=== PATIENT | female | born 1970 | race Caucasian/White ===

== ENCOUNTER 2022-01-15 09:02 | Outpatient (CLI) | payer BC, SELFPAY ==
--- NOTE | 2022-01-15 09:15 | CRLHL7_ITS ---
For Patients: As a result of the Century Cures Act, medical imaging exams and procedure reports are released immediately into your electronic medical record. You may view this report before your referring provider. If you have questions, please contact your health care provider. BILATERAL DIGITAL SCREENING MAMMOGRAM WITH TOMOSYNTHESIS AND COMPUTER-AIDED DETECTION CLINICAL HISTORY: Routine screening exam. COMPARISON: None. TECHNIQUE: Digital mammogram in CC and MLO projections including computer-aided detection (CAD). Tomosynthesis utilized. BREAST COMPOSITION: There are areas of scattered fibroglandular density. FINDINGS: RIGHT Breast: No suspicious findings. LEFT Breast: Focal asymmetric density upper outer quadrant 5 cm from the nipple. IMPRESSION: LEFT breast asymmetry/mass. RECOMMENDATIONS: Additional mammographic views of the LEFT breast including 3D spot compression CC/MLO. LEFT breast ultrasound may also be required. The [facility] will contact the patient for follow-up. BI-RADS Category 0: Incomplete: Need Additional Imaging Evaluation and/or Prior Mammograms for Comparison A lay language report of this examination will be provided to the patient. Dictated by Dong Ruiz MD @ 02/02/2022 9:02:09 AM jj/Dictated by: Dong Ruiz MD @ 02/02/2022 9:02:00 AM (Electronically Signed)
== END 2022-01-15 09:03 | disposition home or self-care (01) ==
LOC: MAMMO 09:02
PROVIDERS: PCP Nurse Practitioner Family; Visit Provider Nurse Practitioner Family
DX: Z12.31 Encounter for screening mammogram for malignant neoplasm of breast (principal); N63.20 Unspecified lump in the left breast, unspecified quadrant
CPT/HCPCS: 77063; 77067

== ENCOUNTER 2022-04-16 12:52 | Outpatient (CLI) | payer BC, SELFPAY ==
[2022-04-16 15:19] LABS: Cholesterol* 229 mg/dL (90-199); Triglycerides* 175 mg/dL (40-149)
[2022-04-16 15:20] LABS: HDL Cholesterol* 65 mg/dL (>=50); LDL Cholesterol Calculated 129 mg/dL (<100)
== END 2022-04-16 12:53 | disposition home or self-care (01) ==
PROVIDERS: PCP Nurse Practitioner Family; Visit Provider Nurse Practitioner Family
DX: Z13.6 Encounter for screening for cardiovascular disorders (principal)
CPT/HCPCS: 36415; 80061

== ENCOUNTER 2022-04-26 08:07 | Outpatient (CLI) | payer BC, SELFPAY ==
--- NOTE | 2022-04-26 09:52 | W.ANESCHARGE ---
Anesthesia Charges Start Date/Time Anesthesia Start Date: 04/26/22 Anesthesia Start Time: 09:15 Stop Date/Time Anesthesia Stop Date: 04/26/22 Anesthesia Stop Time: 09:55 Summary Emergency: No
== END 2022-04-26 08:08 | disposition home or self-care (01) ==
LOC: OP CLINIC 08:07
PROVIDERS: PCP Nurse Practitioner Family; Visit Provider Surgery
DX: Z86.010 Personal history of colon polyps (principal); K63.5 Polyp of colon
CPT/HCPCS: 00811; 45385; 88305

== ENCOUNTER 2023-02-22 15:34 | Outpatient (CLI) | payer BC, SELFPAY ==
--- NOTE | 2023-02-22 15:40 | CRLHL7_ITS ---
For Patients: As a result of the Cures Act, medical imaging exams and procedure reports are released immediately into your electronic medical record. You may view this report before your referring provider. If you have questions, please contact your health care provider. BILATERAL SCREENING MAMMOGRAM WITH COMPUTER-AIDED DETECTION AND TOMOSYNTHESIS TECHNIQUE: CC and MLO views were obtained. These mammographic images have been obtained using full-field digital technique. These mammographic images were interpreted with the benefit of computer-aided detection. Breast Tomosynthesis was used in this interpretation. COMPARISON FILM: 01/15/22, 10/03/20, 03/22/19. FINDINGS: There are scattered areas of fibroglandular density IMPRESSION: There is no radiographic evidence for malignancy. ASSESSMENT: BI-RADS Category 1: Negative RECOMMENDATION: Routine screening mammogram in 1 year. A lay language report of this examination will be provided to the patient. Dong Ruiz M.D. Diagnostic Radiologist [email or web address] Transcribed: 3:12 p.fatou pearson/Dictated by: Dong Ruiz MD @ 02/23/2023 12:15:00 PM (Electronically Signed)
== END 2023-02-22 15:35 | disposition home or self-care (01) ==
LOC: MAMMO 15:35
PROVIDERS: PCP Nurse Practitioner Family; Visit Provider Nurse Practitioner Family
DX: Z12.31 Encounter for screening mammogram for malignant neoplasm of breast (principal)
CPT/HCPCS: 77063; 77067

== ENCOUNTER 2023-05-06 09:23 | Outpatient (CLI) | payer BC, SELFPAY | END 2023-05-06 09:24 | disposition home or self-care (01) | PROVIDERS: PCP Nurse Practitioner Family; Visit Provider Nurse Practitioner Family | DX: E78.5 Hyperlipidemia, unspecified (principal); Z13.1 Encounter for screening for diabetes mellitus; Z13.0 Encounter for screening for diseases of the blood and blood-forming organs and certain disorders involving the immune mechanism; Z13.6 Encounter for screening for cardiovascular disorders | CPT/HCPCS: 80048; 80061; 85025 ==

== ENCOUNTER 2024-03-26 13:06 | Outpatient (CLI) | payer BC, SELFPAY ==
--- NOTE | 2024-03-26 13:20 | CRLHL7_ITS ---
For Patients: As a result of the Century Cures Act, medical imaging exams and procedure reports are released immediately into your electronic medical record. You may view this report before your referring provider. If you have questions, please contact your health care provider. BILATERAL SCREENING MAMMOGRAM WITH COMPUTER-AIDED DETECTION AND TOMOSYNTHESIS TECHNIQUE: CC and MLO views were obtained. These mammographic images have been obtained using full-field digital technique. These mammographic images were interpreted with the benefit of computer-aided detection. Breast Tomosynthesis was used in this interpretation. COMPARISON FILM: 02/22/23, 01/15/22, 10/03/20. FINDINGS: There are scattered areas of fibroglandular density. IMPRESSION: There is no radiographic evidence for malignancy. ASSESSMENT: BI-RADS Category 1: Negative RECOMMENDATION: Routine screening mammogram in 1 year. A lay language report of this examination will be provided to the patient. Dong Ruiz M.D. Diagnostic Radiologist [email or web address] SP/Dictated by: Dong Ruiz MD @ 03/30/2024 10:35:00 AM (Electronically Signed)
== END 2024-03-26 13:07 | disposition home or self-care (01) ==
LOC: MAMMO 13:07
PROVIDERS: PCP Nurse Practitioner Family; Visit Provider Nurse Practitioner Family
DX: Z12.31 Encounter for screening mammogram for malignant neoplasm of breast (principal)
CPT/HCPCS: 77063; 77067

== ENCOUNTER 2024-06-08 10:57 | Outpatient (CLI) | payer BC, SELFPAY | END 2024-06-08 10:58 | disposition home or self-care (01) | PROVIDERS: PCP Nurse Practitioner Family; Visit Provider Nurse Practitioner Family | DX: E78.5 Hyperlipidemia, unspecified (principal); N39.0 Urinary tract infection, site not specified; Z13.0 Encounter for screening for diseases of the blood and blood-forming organs and certain disorders involving the immune mechanism | CPT/HCPCS: 80053; 80061; 81001; 85025; 87086 ==

== ENCOUNTER 2025-03-29 07:54 | Outpatient (CLI) | payer BC, SELFPAY ==
--- NOTE | 2025-03-29 08:15 | CRLHL7_ITS ---
For Patients: As a result of the Century Cures Act, medical imaging exams and procedure reports are released immediately into your electronic medical record. You may view this report before your referring provider. If you have questions, please contact your health care provider. INDICATION: BILATERAL SCREENING MAMMOGRAM, ASYMPTOMATIC 54 Y/O FEMALE COMPARISON: 03/26/2024, 02/22/2023, 01/15/2022 TECHNIQUE: Digital mammogram in CC and MLO projections including computer-aided detection (CAD) and tomosynthesis. BREAST COMPOSITION: There are scattered areas of fibroglandular density. FINDINGS: No suspicious findings. ASSESSMENT: BI-RADS 1 Negative RECOMMENDATION: Annual screening mammogram. A lay language report of this examination will be provided to the patient. Dictated by: Dong Ruiz MD @ 03/29/2025 10:12:34 (Electronically Signed)
== END 2025-03-29 07:55 | disposition home or self-care (01) ==
LOC: MAMMO 07:55
PROVIDERS: PCP Nurse Practitioner Family; Visit Provider Nurse Practitioner Family
DX: Z12.31 Encounter for screening mammogram for malignant neoplasm of breast (principal)
CPT/HCPCS: 77063; 77067

== ENCOUNTER 2025-04-30 08:02 | Outpatient (CLI) | payer BC, SELFPAY ==
--- NOTE | 2025-04-30 09:21 | P.ANES_ITS ---
Anesthesia Charges Start Date/Time Anesthesia Start Date: 04/30/25 Anesthesia Start Time: 08:46 Stop Date/Time Anesthesia Stop Date: 04/30/25 Anesthesia Stop Time: 09:22 Coding CPT Codes CPT Codes: ANDERS LWR INTST NDSC NOS - [id number] ([id number]) P2 - PATIENT W/MILD SYST DISEASE, QK - HVAC COMMERCIAL SALESPERSON 2-4 CNCRNT ANES PROC, QX - SALES PROMOTION OFFICER SVC W/ MD MED DIRECTION
--- NOTE | 2025-04-30 09:21 | W.ANESCHARGE ---
Anesthesia Charges Start Date/Time Anesthesia Start Date: 04/30/25 Anesthesia Start Time: 08:46 Stop Date/Time Anesthesia Stop Date: 04/30/25 Anesthesia Stop Time: 09:22 Coding CPT Codes CPT Codes: ANDERS LWR INTST NDSC NOS - [id number] ([id number]) P2 - PATIENT W/MILD SYST DISEASE, QK - CAR DROPPER 2-4 CNCRNT ANES PROC, QX - DREDGE OPERATOR SVC W/ MD MED DIRECTION
--- NOTE | 2025-04-30 10:50 | P.ANES_ITS ---
Anesthesia Charges Start Date/Time Anesthesia Start Date: 04/30/25 Anesthesia Start Time: 08:46 Stop Date/Time Anesthesia Stop Date: 04/30/25 Anesthesia Stop Time: 09:22 Coding CPT Codes CPT Codes: ANDERS SCHMITZ INTST NDSC NOS - [id number] ([id number]) P2 - PATIENT W/MILD SYST DISEASE, QX - INK TECHNICIAN SVC W/ MD MED DIRECTION, QK - ACCOUNTS RECEIVABLE COORDINATOR 2-4 CNCRNT ANEChaim PROC
--- NOTE | 2025-04-30 10:50 | W.ANESCHARGE ---
Anesthesia Charges Start Date/Time Anesthesia Start Date: 04/30/25 Anesthesia Start Time: 08:46 Stop Date/Time Anesthesia Stop Date: 04/30/25 Anesthesia Stop Time: 09:22 Coding CPT Codes CPT Codes: ANDERS SCHMITZ INTST NDSC NOS - [id number] ([id number]) P2 - PATIENT W/MILD SYST DISEASE, QX - JUVENILE JUSTICE OFFICER SVC W/ MD MED DIRECTION, QK - SENIOR SCIENTIST 2-4 CNCRNT ANEChaim PROC
== END 2025-04-30 08:03 | disposition home or self-care (01) ==
LOC: OP CLINIC 08:02
PROVIDERS: PCP Nurse Practitioner Family; Visit Provider Internal Medicine
DX: Z12.11 Encounter for screening for malignant neoplasm of colon (principal); D12.0 Benign neoplasm of cecum; D12.4 Benign neoplasm of descending colon; D12.5 Benign neoplasm of sigmoid colon; D12.8 Benign neoplasm of rectum; D49.0 Neoplasm of unspecified behavior of digestive system; Z86.0100 Personal history of colon polyps, unspecified
CPT/HCPCS: 00811; 00812; 45380; 45385; 88305; J2704

== ENCOUNTER 2025-06-18 08:20 | Outpatient (CLI) | payer BC, SELFPAY | END 2025-06-18 08:21 | disposition home or self-care (01) | PROVIDERS: PCP Nurse Practitioner Family; Visit Provider Nurse Practitioner Family | DX: Z00.00 Encounter for general adult medical examination without abnormal findings (principal); E78.5 Hyperlipidemia, unspecified; Z13.0 Encounter for screening for diseases of the blood and blood-forming organs and certain disorders involving the immune mechanism | CPT/HCPCS: 80053; 80061; 85025 ==